=== PATIENT | female | born 1990 | race Caucasian/White ===

== ENCOUNTER 2017-02-23 09:46 | Emergency (ER) | payer MEDICAID, OTHER ==
[~2017-02-23 09:46] MED LIST: DOXY100T PO; NAPR500 PO; Z.0.NO CURRENT MEDS
[2017-02-23] MEDS ORDERED: TERBUTALINE INJ 1 MG/ML AMP SQ PRN (10:30)
[2017-02-23] MEDS ORDERED: LACTATED RINGER'S 1000 ML INJ 1,000 ML IV SCH (10:30)
[2017-02-23] MEDS ORDERED: ONDANSETRON HCL 4 MG/2 ML VIAL IV PUSH ONE (10:30)
--- NOTE | 2017-02-23 10:30 | PD ---
HPI Chief Complaint Possible leakage of fluid and NST contractions Date Seen: Feb 23, 2017 Time Seen: 10:25 Travel History International Travel<30 Days: No Contact w/Intl Traveler<30Days: No Known Affected Area: No History of Present Illness HPI Patient 26-year-old white female A1 and now at [address] Domingo for care who presents planning of possibly leaking fluid this morning per vagina. She is also having a few contractions she barely feels. heart rate tracing is reactive and she is elie every 3-4 minutes. Weeks Gestation: 35 Para: 1 : 3 Miscarriage: 1 History Obstetric History Obstetric History One vaginal delivery 1 miscarriage Social History Alcohol Use: No Tobacco Use: No Substance Abuse: No Allergies-Medications (Allergen,Severity, Reaction): Coded Allergies: No Known Allergies (Verified Allergy, Unknown, 02/23/17) Home Meds Active Scripts Naproxen (Naprosyn) 500 Mg Tab, 500 MG PO BIDPRN, #20 Prov:Gavin GIFFORD M.D. 11/03/10 Doxycycline Hyclate 100 mg (Doxycycline Hyclate 100 mg) 100 Mg Tab, 100 MG PO BID, #20 Prov:Gavin GIFFORD M.D. 11/03/10 Reported Medications Miscellaneous (No Current Meds) Misc 11/03/10 Review of Systems General / Constitutional: No: Fever, Weight Gain, Chills, Other Eyes: No: Diploplia, Blurred Vision, Visual changes, Pain, Photophobia HENT: No: Headaches, Vertigo, Lightheadedness Cardiovascular: No: Irregular Rhythm, Chest Pain or Discomfort, Palpitations, Tachycardia, Syncope, Varicosities, Edema, Cyanosis Respiratory: No: Cough, Short of Breath, Other Gastrointestinal: No: Nausea, Vomiting, Diarrhea Genitourinary: No: Decreased Urinary Output, Oliguria Musculoskeletal: No: Limited ROM, Weakness, Cramping, Edema, Pain Skin: No Rash, No Itching, No Dryness, No Lumps, No Change in Pigmentation, No Change in Nails, No Alopecia, No Lesions Neurologic: No: Weakness, Dizziness, Syncope, Focal Abnormalities, Coordination Problem, Headache, Slurred Speech, Seizures Psychiatric: No: Depression, Suicidal Ideations, Homicidal Ideation Endocrine: No: Heat Intolerance, Cold Intolerance, Polydipsia, Polyuria, Other Physical Exam Narrative GENERAL: Well-nourished, well-developed patient. SKIN: Warm and dry. HEAD: Normocephalic and atraumatic. EYES: No scleral icterus. No injection or drainage. ENT: No nasal drainage noted. Mucous membranes pink. Airway patent. NECK: Supple, trachea midline. No JVD. CARDIOVASCULAR: Regular rate and rhythm without murmurs, gallops, or rubs. RESPIRATORY: Breath sounds equal bilaterally. No accessory muscle use. BREASTS: Bilateral exam showed no masses , no retractions, no nipple discharge. ABDOMEN/GI: Abdomen soft, non-tender, bowel sounds present, no rebound, no guarding Gravid to [35-] weeks size Fundal Height: [35-] GENITOURINARY: External Genitalia: intact and normal in appearance BUS glands: [-] Cervix: [Closed-] Dilatation: [-] Closed thick Effacement: [-] Station: [-3] Membranes: [intact amnisure neg] Uterine Contractions: [-q 4 min] FHT's: Category: [1-] Baseline: [133-] Reactive: [reactive-] Variability: [mod-] Decels: [-0] EXTREMITIES: No cyanosis or edema. BACK: Nontender without obvious deformity. No CVA tenderness. NEUROLOGICAL: Awake and alert. Motor and sensory grossly within normal limits. Five out of 5 muscle strength in all muscle groups. Normal speech. Data Data Labs amnisure neg MDM Interpretation(s) Patient 26-year-old white female A1 at 35 weeks presents with complaint of possibly leaking fluid. Her amnio sure is negative. contractions are noted every 4 minutes approximately and not really uncomfortable. Her cervix is closed thick and high. heart rate tracing is reactive Plan Plan IV hydration and subcutaneous terb and 25 mics of fentanyl IV, anticipate these measures will decrease her contraction activity. At 35 weeks and it's also going to do to try and stop thanks if it doesn't that she'll still this be discharged home to return if pains worsen or if she has more leakage, the patient to follow-up with Dr. Domingo Diagnosis Diagnosis: Primary Impression: No leakage of amniotic fluid into vagina Additional Impression: 35 weeks gestation of Disposition: DISCHARGE HOME Condition: Stable Toño Stallings II, MD Feb 23, 2017 10:30
[2017-02-23 12:23] LABS: BACTERIA, URINE OCC /hpf; BLOOD, URINE NEG (NEG); COMMENT (UR) CULT NOT INDICATED; CULTURE IF INDICATED CULT NOT INDICATED; GLUCOSE,URINE NEG (NEG); KETONE, URINE NEG (NEG); MUCUS URINE FEW /lpf (OCC); NITRITE,URINE NEG (NEG); PH, URINE 7.5 (5.0-8.5); SQUAMOUS EPITHELIAL CELL URINE 7 /hpf (0-5); URINE COLOR COLORLESS (YELLW/STRAW)
[2017-02-23 13:55] VITALS: RESP 16
== END 2017-02-23 13:56 | disposition home or self-care (01) ==
LOC: HOBED 09:46
DX: O47.03 False labor before 37 completed weeks of gestation, third trimester (principal); Z3A.35 35 weeks gestation of pregnancy; Z79.899 Other long term (current) drug therapy
CPT/HCPCS: 59025; 81001; 84112; 96372; 96374; 96375; 99284; J3010; J3105

== ENCOUNTER 2017-03-19 20:29 | Emergency (ER) | payer MEDICAID ==
--- NOTE | 2017-03-19 21:18 | PD ---
HPI Chief Complaint Leaking fluid per vagina Date Seen: Mar 19, 2017 Time Seen: 21:10 Travel History International Travel<30 Days: No Contact w/Intl Traveler<30Days: No Known Affected Area: No History of Present Illness HPI Patient is 27-year-old white female G A1 at 38 weeks who presents complaining of leakage of fluid per vagina with a gush of water continue to come out slowly, her amnio sure is negative for here on OB ED, heart rate tracing is reactive and there are no regular contractions. Patient sees Dr. Domingo for care Weeks Gestation: 38 Para: 1 : 3 Last Menstrual Period: Mar 19, 2017 Miscarriage: 1 History Obstetric History Obstetric History One vaginal delivery 1 early loss Social History Alcohol Use: No Tobacco Use: No Substance Abuse: No Allergies-Medications (Allergen,Severity, Reaction): Coded Allergies: No Known Allergies (Verified Allergy, Unknown, 02/23/17) Home Meds Active Scripts Naproxen (Naprosyn) 500 Mg Tab, 500 MG PO BIDPRN, #20 Prov:Gavin GIFFORD M.D. 11/03/10 Doxycycline Hyclate 100 mg (Doxycycline Hyclate 100 mg) 100 Mg Tab, 100 MG PO BID, #20 Prov:Gavin GIFFORD M.D. 11/03/10 Reported Medications Miscellaneous (No Current Meds) [facility] [place] 11/03/10 Review of Systems General / Constitutional: No: Fever, Weight Gain, Chills, Other Eyes: No: Diploplia, Blurred Vision, Visual changes, Pain, Photophobia HENT: No: Headaches, Vertigo, Lightheadedness Cardiovascular: No: Irregular Rhythm, Chest Pain or Discomfort, Palpitations, Tachycardia, Syncope, Varicosities, Edema, Cyanosis Respiratory: No: Cough, Short of Breath, Other Gastrointestinal: No: Nausea, Vomiting, Diarrhea Genitourinary: No: Decreased Urinary Output, Oliguria Musculoskeletal: No: Limited ROM, Weakness, Cramping, Edema, Pain Skin: No Rash, No Itching, No Dryness, No Lumps, No Change in Pigmentation, No Change in Nails, No Alopecia, No Lesions Neurologic: No: Weakness, Dizziness, Syncope, Focal Abnormalities, Coordination Problem, Headache, Slurred Speech, Seizures Psychiatric: No: Depression, Suicidal Ideations, Homicidal Ideation Endocrine: No: Heat Intolerance, Cold Intolerance, Polydipsia, Polyuria, Other Physical Exam Narrative GENERAL: Well-nourished, well-developed patient. SKIN: Warm and dry. HEAD: Normocephalic and atraumatic. EYES: No scleral icterus. No injection or drainage. ENT: No nasal drainage noted. Mucous membranes pink. Airway patent. NECK: Supple, trachea midline. No JVD. CARDIOVASCULAR: Regular rate and rhythm without murmurs, gallops, or rubs. RESPIRATORY: Breath sounds equal bilaterally. No accessory muscle use. BREASTS: Bilateral exam showed no masses , no retractions, no nipple discharge. ABDOMEN/GI: Abdomen soft, non-tender, bowel sounds present, no rebound, no guarding Gravid to [38-] weeks size Fundal Height: [38-] GENITOURINARY: External Genitalia: intact and normal in appearance BUS glands: [-] Cervix: [post-] Dilatation: [-1] Effacement: [-50] Station: [-3] Presentation: [vtx-] Membranes: [intact amnisure neg] Uterine Contractions: [none-] FHT's: Category: [1-] Baseline: [-133] Reactive: [yes-] Variability: [mod-] Decels: [0-] EXTREMITIES: No cyanosis or edema. BACK: Nontender without obvious deformity. No CVA tenderness. NEUROLOGICAL: Awake and alert. Motor and sensory grossly within normal limits. Five out of 5 muscle strength in all muscle groups. Normal speech. Data Data Labs amnisure negative MDM Interpretation(s) Patient is 27-year-old white female at 38 weeks presents planning of leakage of fluid per vagina. The patient's amnio sure is negative here on OB ED. heart rate tracing is reactive and she has no contractions Plan Plan to discharge patient home to observe for any further leakage and return if there significant fluid per vagina. She is also return for any significant bleeding or abdominal pain otherwise follow-up with her OB provider Diagnosis Diagnosis: Primary Impression: No leakage of amniotic fluid into vagina Additional Impression: 38 weeks gestation of Disposition: DISCHARGE HOME Condition: Stable Toño Stallings II, MD Mar 19, 2017 21:18
[2017-03-19] MEDS ORDERED: PREN29TA PO (21:29)
== END 2017-03-19 21:52 | disposition home or self-care (01) ==
LOC: HOBED 20:29
DX: O26.893 Other specified pregnancy related conditions, third trimester (principal); Z3A.38 38 weeks gestation of pregnancy
CPT/HCPCS: 59025; 84112

== ENCOUNTER 2017-04-05 20:08 | Inpatient (IN) | payer MEDICAID ==
[~2017-04-05] VITALS: Ht 160 cm; Wt 93.0 kg
[~2017-04-05 20:08] MED LIST changes: -DOXY100T PO; -NAPR500 PO; +PREN29TA PO; -Z.0.NO CURRENT MEDS
[2017-04-05] MEDS ORDERED: TERBUTALINE INJ 1 MG/ML AMP SQ PRN (20:45)
[2017-04-05] MEDS ORDERED: SODIUM CHLORIDE FLUSH PRN IV FLUSH (20:45)
[2017-04-05] MEDS ORDERED: DINOPROSTONE 10 MG VAG INSERT VAGINAL ONE (21:00)
[2017-04-05] MEDS: SODIUM CHLORIDE FLUSH BID IV FLUSH SCH (21:00)
[2017-04-05] MEDS ORDERED: LACTATED RINGER'S 1000 ML BOLUS IV PRN (21:45)
[2017-04-05] MEDS ORDERED: ONDANSETRON HCL 4 MG/2 ML VIAL IV PUSH PRN (21:45)
[2017-04-05] MEDS ORDERED: NS 1000 ML IV PRN (21:45)
[2017-04-05] MEDS ORDERED: CITRIC ACID-SODIUM CITRATE LIQ 30 ML UDC PO SCH (21:45)
[2017-04-05] MEDS ORDERED: NS 500 ML BOLUS IV PRN (21:45)
[2017-04-05] MEDS ORDERED: OXYTOCIN 30 UNITS 500ML PREMIX IV ONE (21:45)
[2017-04-05] MEDS ORDERED: MINERAL OIL 10 ML VIAL TOPICAL PRN (21:45)
[2017-04-05] MEDS ORDERED: LIDOCAINE HCL 1% 50 ML VIAL INFIL PRN (21:45)
[2017-04-05] MEDS ORDERED: LIDOCAINE HCL 1% 50 ML VIAL I-DERMAL PRN (21:45)
[2017-04-05] MEDS: LACTATED RINGER'S 1000 ML IV SCH ×2 (21:45→21:50)
[2017-04-05] MEDS ORDERED: ZOLPIDEM TARTRATE 10 MG TAB PO PRN (21:45)
[2017-04-05 21:49] LABS: AUTOMATED NEUTROPHIL # 8.1 TH/MM3 (1.8-7.7); BASOPHIL # 0.1 TH/MM3 (0-0.2); BASOPHIL % 0.7 % (0.0-2.0); EOSINOPHIL # 0.2 TH/MM3 (0-0.4); EOSINOPHIL % 1.4 % (0.0-4.0); HEMATOCRIT 35.8 % (35.0-46.0); HEMOGLOBIN 12.4 GM/DL (11.6-15.3); LYMPHOCYTE # 1.8 TH/MM3 (1.0-4.8); MEAN CELL VOLUME 87.5 FL (80.0-100.0); MEAN CORPUSCULAR HEMOGLOBIN 30.3 PG (27.0-34.0); MEAN CORPUSCULAR HGB CONC 34.7 % (32.0-36.0); MEAN PLATELET VOLUME 9.9 FL (7.0-11.0); MONO % 5.3 % (0.0-8.0); MONOCYTE # 0.6 TH/MM3 (0-0.9); NEUT % 75.6 % (16.0-70.0); PLATELET COUNT 196 TH/MM3 (150-450); RED BLOOD COUNT 4.09 MIL/MM3 (4.00-5.30); RED CELL DISTRIBUTION WIDTH 13.8 % (11.6-17.2); WHITE BLOOD COUNT 10.8 TH/MM3 (4.0-11.0)
[2017-04-05] MEDS: LACTATED RINGER'S 1000 ML INJ 1,000 ML IV SCH (21:50)
[2017-04-05 22:05] LABS: BACTERIA, URINE FEW /hpf; BILIRUBIN, URINE NEG (NEG); BLOOD, URINE NEG (NEG); GLUCOSE,URINE NEG (NEG); KETONE, URINE NEG (NEG); MUCUS URINE FEW /lpf (OCC); NITRITE,URINE NEG (NEG); SQUAMOUS EPITHELIAL CELL URINE 4 /hpf (0-5); URINE COLOR LIGHT-YELLOW (YELLW/STRAW); URINE LEUKOCYTE ESTERASE LARGE (NEG)
[2017-04-05 22:54] VITALS: BP 123/73
[2017-04-05 22:55] VITALS: PULSE 91
[2017-04-05 23:00] VITALS: BP 116/73; RESP 18
[2017-04-05 23:10] VITALS: PULSE 93
[2017-04-06] VITALS (90 sets, daily range): BP systolic 90–146; BP diastolic 42–99; PULSE 74–156; RESP 16–20; TEMP 97.7–98.4
[2017-04-06] MEDS: LACTATED RINGER'S 1000 ML IV SCH (03:18)
[2017-04-06] MEDS: SODIUM CHLORIDE FLUSH BID IV FLUSH SCH (09:00)
--- NOTE | 2017-04-06 09:09 | HHI.HP ---
HPI Chief Complaint iol Travel History International Travel<30 Days: No Contact w/Intl Traveler<30Days: No Known Affected Area: No History of Present Illness HPI 27 yo with iup at 41 wk here for iol for postdates. She has had her PNC with [facility] then Transitioned to [facility]; she has seen Dr. Domingo for most of her care. Her is c/b an abnormal 1 hr gct, normal 3 hr GTT, mild hydronephrosis of 9mm bilaterally. She has gained 50 lb this . She has good fm, neg lof or vb, irreg ctx. She was seen in the office on 04/01 with URI and was treated with Zpac, last dose yesterday. Weeks Gestation: 41 Para: 1 : 3 Miscarriage: 1 History Past Medical History Medical History: Denies Significant Hx Obstetric History Obstetric History G1 Jan 2009 , Male, 7 lb 12 oz, uncomplicated pnc G2 SAB at 17 weeks Past Surgical History Surgical History: No Previous Surgery Family History Family History: Negative Social History Alcohol Use: No Tobacco Use: No Substance Abuse: No Allergies-Medications (Allergen,Severity, Reaction): Coded Allergies: No Known Allergies (Verified Allergy, Unknown, 02/23/17) Home Meds Reported Medications Vit-Iron Carbonyl ( Plus Iron 29-1 mg) 29 Mg Iron-1 Mg Tab, 1 TAB PO DAILY for Nutritional Supplement, #30 TAB 0 Refills 03/19/17 Review of Systems General / Constitutional: No: Fever, Weight Gain, Chills, Other Eyes: No: Diploplia, Blurred Vision, Visual changes, Pain, Photophobia HENT: No: Headaches, Vertigo, Lightheadedness Cardiovascular: No: Irregular Rhythm, Chest Pain or Discomfort, Palpitations, Tachycardia, Syncope, Varicosities, Edema, Cyanosis Respiratory: No: Cough, Short of Breath, Other Gastrointestinal: No: Nausea, Vomiting, Diarrhea Genitourinary: No: Decreased Urinary Output, Oliguria Musculoskeletal: No: Limited ROM, Weakness, Cramping, Edema, Pain Skin: No Rash, No Itching, No Dryness, No Lumps, No Change in Pigmentation, No Change in Nails, No Alopecia, No Lesions Neurologic: No: Weakness, Dizziness, Syncope, Focal Abnormalities, Coordination Problem, Headache, Slurred Speech, Seizures Psychiatric: No: Depression, Suicidal Ideations, Homicidal Ideation Endocrine: No: Heat Intolerance, Cold Intolerance, Polydipsia, Polyuria, Other Physical Exam Vital Signs Date Time Temp Pulse Resp B/P (MAP) Pulse Ox O2 Delivery O2 Flow Rate FiO2 04/06/17 08:45 18 04/06/17 08:30 96 04/06/17 06:00 18 04/06/17 06:00 102/59 (73) 04/06/17 05:55 89 04/06/17 05:10 89 04/06/17 05:05 100 04/06/17 05:02 18 04/06/17 05:00 98 104/43 (63) 04/06/17 04:15 18 04/06/17 04:10 91 04/06/17 04:05 105 04/06/17 04:00 90 107/43 (64) 04/06/17 03:55 89 04/06/17 03:50 85 04/06/17 03:48 98/51 (67) 04/06/17 03:10 86 04/06/17 03:05 95 04/06/17 03:01 86 120/58 (78) 04/06/17 03:00 85 04/06/17 02:56 83 18 106/75 (85) 04/06/17 02:54 97.7 04/06/17 02:50 84 04/06/17 02:10 100 04/06/17 02:00 96/44 (61) 04/06/17 01:00 102/51 (68) 04/06/17 01:00 98.1 04/06/17 01:00 18 04/06/17 00:55 96 04/06/17 00:45 88 04/06/17 00:10 84 04/06/17 00:01 112/70 (84) 04/05/17 23:10 93 04/05/17 23:00 18 116/73 (87) 04/05/17 22:55 91 04/05/17 22:54 123/73 (90) Narrative GENERAL: Well-nourished, well-developed patient. SKIN: Warm and dry. HEAD: Normocephalic and atraumatic. EYES: No scleral icterus. No injection or drainage. ENT: No nasal drainage noted. Mucous membranes pink. Airway patent. NECK: Supple, trachea midline. No JVD. CARDIOVASCULAR: Regular rate and rhythm without murmurs, gallops, or rubs. RESPIRATORY: Breath sounds equal bilaterally. No accessory muscle use. ABDOMEN/GI: Abdomen soft, non-tender, bowel sounds present, no rebound, no guarding Gravid to 41 weeks size Fundal Height: [-] GENITOURINARY: External Genitalia: intact and normal in appearance BUS glands: [-] Cervix: //high Presentation:ceph Membranes: [intact Uterine Contractions: [-] FHT's: Category: I EXTREMITIES: No cyanosis or edema. BACK: Nontender without obvious deformity. No CVA tenderness. NEUROLOGICAL: Awake and alert. Motor and sensory grossly within normal limits. Five out of 5 muscle strength in all muscle groups. Normal speech. Caprini VTE Risk Assessment Caprini VTE Risk Assessment: No/Low Risk (score <= 1) Caprini Risk Assessment Model Point Value = 1 Point Value = 2 Point Value = 3 Point Value = 5 Age 41-60 Minor surgery BMI > 25 kg/m2 Swollen legs Varicose veins or History of unexplained or recurrent spontaneous Oral contraceptives or hormone replacement Sepsis (< 1 month) Serious lung disease, including pneumonia (< 1 month) Abnormal pulmonary function Acute myocardial infarction Congestive heart failure (< 1 month) History of inflammatory bowel disease Medical patient at bed rest Age 61-74 Arthroscopic surgery Major open surgery (> 45 min) Laparoscopic surgery (> 45 min) Malignancy Confined to bed (> 72 hours) Immobilizing plaster cast Central venous access Age >= 75 History of VTE Family history of VTE Factor V Leiden Prothrombin [id number] Lupus anticoagulant Anticardiolipin antibodies Elevated serum homocysteine Heparin-induced thrombocytopenia Other congenital or acquired thrombophilia Stroke (< 1 month) Elective arthroplasty Hip, pelvis, or leg fracture Acute spinal cord injury (< 1 month) Prophylaxis Regimen Total Risk Factor Score Risk Level Prophylaxis Regimen 0-1 Low Early ambulation 2 Moderate Order ONE of the following: *Sequential Compression Device (SCD) *Heparin 5000 units SQ BID 3-4 Higher Order ONE of the following medications: *Heparin 5000 units SQ TID *Enoxaparin/Lovenox 40 mg SQ daily (WT < 150 kg, CrCl > 30 mL/min) *Enoxaparin/Lovenox 30 mg SQ daily (WT < 150 kg, CrCl > 10-29 mL/min) *Enoxaparin/Lovenox 30 mg SQ BID (WT < 150 kg, CrCl > 30 mL/min) AND/OR *Sequential Compression Device (SCD) 5 or more Highest Order ONE of the following medications: *Heparin 5000 units SQ TID (Preferred with Epidurals) *Enoxaparin/Lovenox 40 mg SQ daily (WT < 150 kg, CrCl > 30 mL/min) *Enoxaparin/Lovenox 30 mg SQ daily (WT < 150 kg, CrCl > 10-29 mL/min) *Enoxaparin/Lovenox 30 mg SQ BID (WT < 150 kg, CrCl > 30 mL/min) AND *Sequential Compression Device (SCD) Data Data Vital Signs Reviewed: Yes Orders Orders Physician Name Changes (04/05/17 ) Physician Name Changes (04/05/17 ) Dinoprostone Vag Insert (Cervidil Vag In (04/05/17 21:00) Lactated Ringer's 1000 Ml Inj (Lr 1000 M (04/05/17 21:00) Sodium Chloride 0.9% Flush (Ns Flush) (04/05/17 21:00) Sodium Chloride 0.9% Flush (Ns Flush) (04/05/17 20:45) Terbutaline Inj (Brethine Inj) (04/05/17 20:45) Admit To Inpatient (04/05/17 ) Diet Liquid (04/06/17 Breakfast) ^ Labor Induction (04/05/17 20:49) ^ Vaginal Insert (04/05/17 20:49) ^ Vaginal Lavage (04/05/17 20:49) Heart (04/05/17 20:49) Admit To Inpatient (04/05/17 ) Vital Signs (Adult) .Per protocol (04/05/17 21:37) Activity Oob Ad Itzel (04/05/17 21:37) Heart (04/05/17 21:37) Amnioinfusion (04/05/17 21:37) Urinary Catheter Management .ONCE (04/05/17 21:37) Complete Blood Count With Diff (04/05/17 21:37) Hold Clot (04/05/17 21:37) Abo/Rh Blood Type (04/05/17 21:37) Urinalysis - C+S If Indicated (04/05/17 21:37) Drug Screen, Random Urine (04/05/17 21:37) Resp Oxygen Non Rebreathe Mask (04/05/17 ) ^ Epidural / Intrathecal Infus (04/05/17 21:37) Zolpidem (Ambien) (04/05/17 21:45) Lactated Ringer's 1000 Ml Inj (Lr 1000 M (04/05/17 21:45) Lactated Ringer's 1000 Ml Inj (Lr 1000 M (04/05/17 21:45) Sodium Chlorid 0.9% 500 Ml Inj (Ns 500 M (04/05/17 21:45) Sodium Chlor 0.9% 1000 Ml Inj (Ns 1000 M (04/05/17 21:45) Lidocaine 1% Inj (50 Ml) (Xylocaine 1% I (04/05/17 21:45) Citric Acid-Sodium Citrate Liq (Bicitra (04/05/17 21:45) Ondansetron Inj (Zofran Inj) (04/05/17 21:45) Fentanyl Inj (Fentanyl Inj) (04/05/17 21:45) Fentanyl Inj (Fentanyl Inj) (04/05/17 21:45) Oxytocin 30 Units-500ml Premix (Pitocin (04/05/17 21:45) Lidocaine 1% Inj (50 Ml) (Xylocaine 1% I (04/05/17 21:45) Light Mineral Oil (Muri-Lube Oil) (04/05/17 21:45) Urine Culture (04/05/17 20:41) Group B Strep: Negative Labs Laboratory Tests Test 04/05/17 20:41 White Blood Count 10.8 Red Blood Count 4.09 Hemoglobin 12.4 Hematocrit 35.8 Mean Corpuscular Volume 87.5 Mean Corpuscular Hemoglobin 30.3 Mean Corpuscular Hemoglobin Concent 34.7 Red Cell Distribution Width 13.8 Platelet Count 196 Mean Platelet Volume 9.9 Neutrophils (%) (Auto) 75.6 Lymphocytes (%) (Auto) 17.0 Monocytes (%) (Auto) 5.3 Eosinophils (%) (Auto) 1.4 Basophils (%) (Auto) 0.7 Neutrophils # (Auto) 8.1 Lymphocytes # (Auto) 1.8 Monocytes # (Auto) 0.6 Eosinophils # (Auto) 0.2 Basophils # (Auto) 0.1 CBC Comment DIFF FINAL Differential Comment Urine Color LIGHT-YELLOW Urine Turbidity CLEAR Urine pH 7.0 Urine Specific [place] 1.008 Urine Protein NEG Urine Glucose (UA) NEG Urine Ketones NEG Urine Occult Blood NEG Urine Nitrite NEG Urine Bilirubin NEG Urine Urobilinogen LESS THAN 2.0 Urine Leukocyte Esterase LARGE Urine RBC 8 Urine WBC 19 Urine Squamous Epithelial Cells 4 Urine Bacteria FEW Urine Mucus FEW Microscopic Urinalysis Comment CULTURE INDICATED Urine Opiates Screen NEG Urine Barbiturates Screen NEG Urine Amphetamines Screen NEG Urine Benzodiazepines Screen NEG Urine Cocaine Screen NEG Urine Cannabinoids Screen NEG Date/Time Source Procedure Growth Status 04/05/17 20:41 Urine Clean Catch Urine Culture Pending Received Assessment/Plan Problem List: (1) Post-term ICD Codes: O48.0 - Post-term Qualifiers: Qualified Codes: O48.0 - Post-term (2) Labor and delivery indication for care or intervention ICD Codes: O75.9 - Complication of labor and delivery, unspecified (3) Abnormal glucose tolerance affecting , antepartum ICD Codes: O99.810 - Abnormal glucose complicating (4) hydronephrosis in , antepartum, single gestation ICD Codes: O35.8XX0 - Maternal care for other (suspected) abnormality and damage, not applicable or unspecified Status: Chronic Assessment and Plan 27 yo with iup at 41 weeks, here for iol for postdates 1) IOL- poor palacios score on admission, cervidil placed overnight. Will start pitocin/arom as needed. Discussed iol can be prolonged process. Discussed possible need for CD if she has arrest of labor or NRFHT. 2) RH neg- rhogam eval per protocol 3) Abn 1 hour gct- normal 3 hour gtt, 50 lb wt gain this . EFW at 37 weeks 7 lb 2 oz; projected wt close to 9 lb. Shoulder dystocia precautions. Her pelvis is proven to 7lb 12 oz 4) Fetus- mild hydronephrosis of 9mm bilaterally. Discharge Planning ppd 2 Jada Gustafson MD Apr 06, 2017 09:09
--- NOTE | 2017-04-06 09:10 | PD.LABORPN ---
Subjective Subjective elie with cervidil Objective Vital Signs Vital Signs Date Time Temp Pulse Resp B/P (MAP) Pulse Ox O2 Delivery O2 Flow Rate FiO2 04/06/17 08:45 98.1 04/06/17 08:45 18 04/06/17 08:40 86 04/06/17 08:35 87 04/06/17 08:32 92 129/68 (88) 04/06/17 08:30 96 04/06/17 06:00 18 04/06/17 06:00 102/59 (73) 04/06/17 05:55 89 04/06/17 05:10 89 04/06/17 05:05 100 04/06/17 05:02 18 04/06/17 05:00 98 104/43 (63) 04/06/17 04:15 18 04/06/17 04:10 91 04/06/17 04:05 105 04/06/17 04:00 90 107/43 (64) 04/06/17 03:55 89 04/06/17 03:50 85 04/06/17 03:48 98/51 (67) 04/06/17 03:10 86 04/06/17 03:05 95 04/06/17 03:01 86 120/58 (78) 04/06/17 03:00 85 04/06/17 02:56 83 18 106/75 (85) 04/06/17 02:54 97.7 04/06/17 02:50 84 04/06/17 02:10 100 04/06/17 02:00 96/44 (61) Objective Pelvic Exam: Cervix: [-] Dilatation: [-] 2 Effacement: [-] 50 Station: [-] -3 Presentation: [-] vtx Membranes: [intact or ruptured] arom +mec Uterine Contractions: [-] q 5min FHT's: Category: [-] 1 Baseline: [-] 140 Reactive: [-] Variability: [-] good Decels: [-] Weeks Gestation: 41 Gest Age Assessed Date: Apr 06, 2017 Gest Age Assessed Time: 09:08 Pt started active labor?: Yes Active labor start date: Apr 06, 2017 Active labor start time: 09:09 Medical induction of labor?: Yes Medical induction start date: Apr 05, 2017 Medical induction start time: 22:00 Artificial rupture of membrane: Yes Artificial ROM date: Apr 06, 2017 Artifical ROM time: 09:09 Assessment/Plan Assessment and Plan IUP at 41 wks, hydronephrosis, GBS neg s/p cervidil, removed, arom +mec pitocin prn, analgesia prn, anticipate Darling Acosta MD Apr 06, 2017 09:10
[2017-04-06] MEDS ORDERED: OXYTOCIN 30 UNITS-500ML PREMIX 500 ML IV SCH ×2 (09:15→14:00)
[2017-04-06] MEDS ORDERED: fentaNYL 2MCG-BUPIV 0.125% INJ 100 ML ONE (09:50)
[2017-04-06] MEDS: LACTATED RINGER'S 1000 ML INJ 1,000 ML IV SCH (10:50)
[2017-04-06] MEDS ORDERED: ePHEDrine/NS 25 MG/5 ML SYRINGE IV PUSH PRN (12:00)
[2017-04-06] MEDS ORDERED: DO NOT ADMINISTER ANTICOAGULANTS PRN (12:00)
[2017-04-06] MEDS ORDERED: fentaNYL 2MCG-BUPIV 0.125% 100 ML EPIDURAL SCH (12:00)
[2017-04-06] MEDS ORDERED: NO SYSTEM NARCOTICS PRN (12:00)
--- NOTE | 2017-04-06 13:47 | PD.OB.DELI ---
Weeks gestation: 41 Gest age assessed date: Apr 06, 2017 Gest age assessed time: 09:08 Pt started active labor?: Yes Active labor start date: Apr 06, 2017 Active labor start time: 09:09 Medical induction of labor?: Yes Medical induction start date: Apr 05, 2017 Medical induction start time: 22:00 Artificial rupture of membrane: Yes Artificial ROM date: Apr 06, 2017 Artifical ROM time: 09:09 Anesthesia: Epidural Episiotomy: None Vaginal Delivery: Normal Presentation: Occiput anterior Nuchal Cord: x1 Delayed cord clamping (45 sec): No : Female Delivery date: Apr 06, 2017 Delivery time: 13:30 One Minute : 8 Five Minute : 9 Weight: 8-3 Placenta: Spontaneous delivery Laceration: 2 deg Repair: Chromic interrupted, Vicryl running Estimated blood loss: 350cc Darling Acosta MD Apr 06, 2017 13:47
[2017-04-06] MEDS ORDERED: ONDANSETRON ODT 4 MG TAB PO PRN (14:00)
[2017-04-06] MEDS ORDERED: ZOLPIDEM TARTRATE 5 MG TAB PO PRN (14:00)
[2017-04-06] MEDS ORDERED: ACETAMINOPHEN 325 MG TAB PO PRN (14:00)
[2017-04-06] MEDS ORDERED: SODIUM CHLORIDE 0.9% FLUSH 10 ML FLUSH IV FLUSH PRN (14:00)
[2017-04-06] MEDS ORDERED: WITCH HAZEL 50%/GLYCERIN 12.5% 40 PAD JAR TOPICAL PRN (14:00)
[2017-04-06] MEDS ORDERED: BENZOCAINE 20% TOPICAL SPRAY 60 ML CAN TOPICAL PRN (14:00)
[2017-04-06] MEDS ORDERED: oxyCODONE/ACETAMINOPHEN 5 MG/325 MG TAB PO PRN (14:00)
[2017-04-06] MEDS ORDERED: ALUMINUM/MAGNESIUM/SIMETH 30 ML CUP PO PRN (14:00)
[2017-04-06] MEDS ORDERED: MEASLES, MUMPS, RUBELLA VACCINE 0.5 ML VIAL SQ ONE (16:00)
[2017-04-06] MEDS ORDERED: DIPHTH/TETANUS/ACEL PERTUSSIS (BOOSTER) 0.5 ML VIAL/PFS IM ONE (16:00)
[2017-04-06] MEDS: IBUPROFEN 800 MG TAB PO PRN (16:04)
[2017-04-06] MEDS ORDERED: SODIUM CHLORIDE 0.9% FLUSH 10 ML FLUSH IV FLUSH SCH (21:00)
[2017-04-07] MEDS: IBUPROFEN 800 MG TAB PO PRN ×3 (01:19→16:09)
[2017-04-07] MEDS: DOCUSATE SODIUM 50 MG/SENNA 8.6 MG TAB PO PRN (01:19)
[2017-04-07 08:00] VITALS: BP 99/63; PULSE 84; RESP 18; TEMP 97.9
--- NOTE | 2017-04-07 08:30 | HHI.OB ---
Subjective Post Day: 1 Objective Vitals/I&O Vital Signs Date Time Temp Pulse Resp B/P (MAP) Pulse Ox O2 Delivery O2 Flow Rate FiO2 04/07/17 08:00 97.9 84 18 99/63 (75) 04/06/17 20:00 97.7 82 18 108/59 (75) 04/06/17 16:01 77 112/50 (70) 04/06/17 15:46 74 109/49 (69) 04/06/17 15:30 140 112/77 (89) 04/06/17 15:16 76 95/45 (62) 04/06/17 15:05 20 04/06/17 15:01 76 113/56 (75) 04/06/17 14:46 77 105/44 (64) 04/06/17 14:35 20 04/06/17 14:30 85 125/94 (104) 04/06/17 14:15 81 109/56 (73) 04/06/17 14:05 18 04/06/17 14:00 89 103/56 (72) 04/06/17 13:49 98 112/50 (70) 04/06/17 13:45 18 04/06/17 13:45 98.4 04/06/17 13:32 117 146/50 (82) 04/06/17 13:30 156 04/06/17 13:10 98 04/06/17 13:05 114 04/06/17 13:01 119/99 (106) 04/06/17 13:00 106 04/06/17 12:40 80 04/06/17 12:35 81 04/06/17 12:31 80 109/49 (69) 04/06/17 12:30 82 04/06/17 12:25 77 04/06/17 12:20 81 04/06/17 12:15 94 117/57 (77) 04/06/17 12:12 16 04/06/17 12:10 83 04/06/17 12:08 84 103/42 (62) 04/06/17 12:05 76 04/06/17 12:00 77 04/06/17 12:00 79 90/43 (59) 04/06/17 11:40 79 04/06/17 11:35 89 04/06/17 11:30 80 103/50 (67) 04/06/17 11:30 79 04/06/17 11:25 83 04/06/17 11:20 85 04/06/17 11:17 79 105/59 (74) 04/06/17 11:15 88 04/06/17 11:12 84 100/45 (63) 04/06/17 11:10 88 94/44 (61) 04/06/17 11:10 86 04/06/17 11:05 86 98/46 (63) 04/06/17 11:05 83 04/06/17 11:00 87 18 101/43 (62) 04/06/17 11:00 85 04/06/17 11:00 98.2 04/06/17 10:56 86 117/66 (83) 04/06/17 10:55 85 04/06/17 10:50 84 117/65 (82) 04/06/17 10:50 80 04/06/17 10:45 87 113/63 (80) 04/06/17 10:45 82 04/06/17 10:40 83 115/58 (77) 04/06/17 10:40 86 04/06/17 10:35 83 04/06/17 10:35 87 119/59 (79) 04/06/17 10:30 91 113/65 (81) 04/06/17 10:30 84 04/06/17 10:25 90 113/55 (74) 04/06/17 10:25 83 04/06/17 10:20 88 04/06/17 10:20 101 04/06/17 10:20 103 114/61 (78) 04/06/17 10:15 86 123/61 (81) 04/06/17 10:15 82 04/06/17 10:10 144/74 (97) 04/06/17 10:10 90 04/06/17 10:10 94 04/06/17 10:08 125/68 (87) 04/06/17 10:08 86 04/06/17 10:05 83 04/06/17 10:05 80 04/06/17 10:00 84 04/06/17 10:00 85 04/06/17 08:45 98.1 04/06/17 08:45 18 04/06/17 08:40 86 04/06/17 08:35 87 04/06/17 08:32 92 129/68 (88) 04/06/17 08:30 96 Objective Remarks GENERAL: Well-nourished, well-developed patient. CARDIOVASCULAR: Regular rate and rhythm without murmurs, gallops, or rubs. RESPIRATORY: Breath sounds equal bilaterally. No accessory muscle use. ABDOMEN/GI: Abdomen soft, non-tender. Fundus: Firm, non-tender at umbilicus. GENITOURINARY: Light to moderate bleeding. EXTREMITIES: No cyanosis or edema, non-tender, without signs of DVT. Medications and IVs Current Medications Medications (Trade) Dose Ordered Sig/Fiorella Route Start Time Stop Time Status Last Admin (NS Flush) 2 ml BID IV FLUSH 04/06/17 21:00 (NS Flush) 2 ml UNSCH PRN IV FLUSH 04/06/17 14:00 (Tylenol) 650 mg Q4H PRN PO 04/06/17 14:00 (Motrin) 800 mg Q8H PRN PO 04/06/17 14:00 04/07/17 01:19 (Percocet 5-325 Mg) 1 tab Q6H PRN PO 04/06/17 14:00 (Americaine 20% Top Spr) 1 spray Q4H PRN TOPICAL 04/06/17 14:00 04/07/17 01:19 (Tucks Pads) 1 applic QID PRN TOPICAL 04/06/17 14:00 04/07/17 01:19 (Bozena-Colace) 2 tab Q12H PRN PO 04/06/17 14:00 04/07/17 01:19 (Ambien) 5 mg HS PRN PO 04/06/17 14:00 (Mag-Al Plus Susp Liq) 15 ml Q8H PRN PO 04/06/17 14:00 (Zofran Odt) 4 mg Q6H PRN PO 04/06/17 14:00 Assessment/Plan Problem List: (1) Post-term ICD Codes: O48.0 - Post-term Qualifiers: Qualified Codes: O48.0 - Post-term (2) Labor and delivery indication for care or intervention ICD Codes: O75.9 - Complication of labor and delivery, unspecified (3) Abnormal glucose tolerance affecting , antepartum ICD Codes: O99.810 - Abnormal glucose complicating (4) hydronephrosis in , antepartum, single gestation ICD Codes: O35.8XX0 - Maternal care for other (suspected) abnormality and damage, not applicable or unspecified Status: Chronic Assessment and Plan 27 yo s/p at 41 weeks, induced 1) PPD#1: routine care, supportive care, consult if desired 2) RH neg - Rhogam eval per protocol 3) Abn 1 hour gct- normal 3 hour gtt 4) Fetus- mild hydronephrosis of 9mm bilaterally - Peds made aware per admission doc 5) dispo: routine planning for PPD#2 Discharge Planning ppd 2 Janeen Domingo MD Apr 07, 2017 08:30
[2017-04-07] MEDS ORDERED: PERI PO (08:31)
[2017-04-07] MEDS ORDERED: IBUP1TAB7 PO (08:31)
[2017-04-07 19:30] VITALS: BP 127/68; PULSE 78; RESP 18; TEMP 97.5; O2SAT 99
[2017-04-08] MEDS: DOCUSATE SODIUM 50 MG/SENNA 8.6 MG TAB PO PRN (03:04)
[2017-04-08] MEDS: IBUPROFEN 800 MG TAB PO PRN (03:05)
[2017-04-08 08:00] VITALS: BP 105/65; PULSE 78; RESP 16; TEMP 98.6
--- NOTE | 2017-04-08 09:08 | HHI.OB ---
Subjective Post Day: 2 Remarks PPD#2, stable, plan D/c to home Objective Vitals/I&O Vital Signs Date Time Temp Pulse Resp B/P (MAP) Pulse Ox O2 Delivery O2 Flow Rate FiO2 04/08/17 08:00 98.6 78 16 105/65 (78) 18 19:30 127/68 (87) 04/07/17 19:30 97.5 78 18 99 Objective Remarks GENERAL: Well-nourished, well-developed patient. CARDIOVASCULAR: Regular rate and rhythm without murmurs, gallops, or rubs. RESPIRATORY: Breath sounds equal bilaterally. No accessory muscle use. ABDOMEN/GI: Abdomen soft, non-tender. Fundus: Firm, non-tender at umbilicus. GENITOURINARY: Light to moderate bleeding. EXTREMITIES: No cyanosis or edema, non-tender, without signs of DVT. Medications and IVs Current Medications Medications (Trade) Dose Ordered Sig/Fiorella Route Start Time Stop Time Status Last Admin (NS Flush) 2 ml BID IV FLUSH 04/06/17 21:00 (NS Flush) 2 ml UNSCH PRN IV FLUSH 04/06/17 14:00 (Tylenol) 650 mg Q4H PRN PO 04/06/17 14:00 (Motrin) 800 mg Q8H PRN PO 04/06/17 14:00 04/08/17 03:05 (Percocet 5-325 Mg) 1 tab Q6H PRN PO 04/06/17 14:00 (Americaine 20% Top Spr) 1 spray Q4H PRN TOPICAL 04/06/17 14:00 04/07/17 01:19 (Tucks Pads) 1 applic QID PRN TOPICAL 04/06/17 14:00 04/07/17 01:19 (Bozena-Colace) 2 tab Q12H PRN PO 04/06/17 14:00 04/08/17 03:04 (Ambien) 5 mg HS PRN PO 04/06/17 14:00 (Mag-Al Plus Susp Liq) 15 ml Q8H PRN PO 04/06/17 14:00 (Zofran Odt) 4 mg Q6H PRN PO 04/06/17 14:00 Assessment/Plan Problem List: (1) Post-term ICD Codes: O48.0 - Post-term Qualifiers: Qualified Codes: O48.0 - Post-term (2) Labor and delivery indication for care or intervention ICD Codes: O75.9 - Complication of labor and delivery, unspecified (3) Abnormal glucose tolerance affecting , antepartum ICD Codes: O99.810 - Abnormal glucose complicating (4) hydronephrosis in , antepartum, single gestation ICD Codes: O35.8XX0 - Maternal care for other (suspected) abnormality and damage, not applicable or unspecified Status: Chronic Assessment and Plan 27 yo s/p at 41 weeks, induced 1) PPD#2: routine care, supportive care 2) RH neg - Rhogam eval per protocol 3) Abn 1 hour gct- normal 3 hour gtt 4) Fetus- mild hydronephrosis of 9mm bilaterally - Peds made aware per admission doc 5) dispo: routine planning for TODAY Discharge Planning today Gabriel Kline MD Apr 08, 2017 09:08
--- NOTE | 2017-04-08 09:10 | HHI.DS ---
Admission Date Apr 05, 2017 at 20:08 Admitting Diagnosis Diagnosis: Delivery Date: Apr 06, 2017 Vaginal Delivery: Normal : Female Brief History 27 yo with iup at 41 wk here for iol for postdates. She has had her PNC with [facility] then Transitioned to [facility]; she has seen Dr. Domingo for most of her care. Her is c/b an abnormal 1 hr gct, normal 3 hr GTT, mild hydronephrosis of 9mm bilaterally. She has gained 50 lb this . She has good fm, neg lof or vb, irreg ctx. She was seen in the office on 04/01 with URI and was treated with Zpac, last dose yesterday. Pt Condition on Discharge: Good Discharge Disposition: Discharge Home Discharge Instructions Diet Instructions: As Tolerated, No Restrictions Activities You Can Perform: Shower Only-No Bath, Pelvic Rest Activities to Avoid: Driving for 24 hrs, Prolonged Standing, Strenuous Activity Gabriel Kline MD Apr 08, 2017 09:09
== END 2017-04-08 11:31 | disposition home or self-care (01) | DRG 775 ==
LOC: H2EB 20:08 → H1EA 04-06 17:13
PROVIDERS: ADMIT Obstetrics & Gynecology; ATTEND Obstetrics & Gynecology
PROC: 3E0P7VZ Introduction of Hormone into Female Reproductive, Via Natural or Artificial Opening (ICD-10-PCS; 2017-04-05)
PROC: 10907ZC Drainage of Amniotic Fluid, Therapeutic from Products of Conception, Via Natural or Artificial Opening (ICD-10-PCS; 2017-04-05)
PROC: 10E0XZZ Delivery of Products of Conception, External Approach (ICD-10-PCS; principal; 2017-04-06)
PROC: 0KQM0ZZ Repair Perineum Muscle, Open Approach (ICD-10-PCS; 2017-04-06)
DX: O48.0 Post-term pregnancy (principal); O99.814 Abnormal glucose complicating childbirth; O69.81X0 Labor and delivery complicated by cord around neck, without compression, not applicable or unspecified; O77.0 Labor and delivery complicated by meconium in amniotic fluid; O70.1 Second degree perineal laceration during delivery; Z37.0 Single live birth; Z3A.41 41 weeks gestation of pregnancy
CPT/HCPCS: 80307; 81001; 85025; 85461; 86850; 86900; 86901; 87086; 90384; J2405; J2590; J2790; J7120